=== PATIENT | male | born 1970 | race African-American/Black ===

== ENCOUNTER 2023-10-07 06:59 | Emergency (ER) | payer MEDICAID ==
[~2023-10-07] VITALS: Ht 170.2 cm; Wt 80.0 kg
[2023-10-07 07:03] VITALS: O2SAT 100
[2023-10-07] MEDS: IBUPROFEN 400MG TABLET PO ONE (07:42)
[2023-10-07] MEDS: ACETAMINOPHEN 325MG TABLET PO ONE (08:53)
[2023-10-07] MEDS ORDERED: IBUP-2028 MT (09:49)
[2023-10-07 10:16] VITALS: BP 136/87; PULSE 69; RESP 17; TEMP 98.2
== END 2023-10-07 10:20 ==
LOC: ER 06:59
DX: G89.29 Other chronic pain (principal); M25.552 Pain in left hip; M25.551 Pain in right hip
CPT/HCPCS: 72170; 99283